=== PATIENT | female | born 1985 ===

== ENCOUNTER 2016-10-27 21:33 | Emergency (ER) | payer MEDICAID, OTHER ==
[2016-10-27 21:51] VITALS: BP 151/87
--- NOTE | 2016-10-27 22:11 | UC ---
General HPI - HPI Summary HPI Summary: Patient gave to a healthy on 10/23. the was uneventful. She did have 2 elevated BP readings while in the hospital. today around noon patient started to have a headache, had some floaters that went away in a few minutes. patient became nervous and started taking her BP every 40 minutes, BP got to 151/101 and she came in to get checked out. Patient is worried that her BP is going to keep getting higher. toady was the first day she was up and around has been resting on the couch since giving . She ran errands this morning. - History of Current Complaint Chief Complaint: UCHeadInjury Stated Complaint: BLOOD PRESSURE FLUCTUATING Time Seen by Provider: 10/27/16 21:51 Hx Obtained From: Patient Onset/Duration: Sudden Onset, Lasting Hours Timing: Constant Onset Severity: Mild Current Severity: Moderate Associated Signs & Symptoms: Positive: Headache - Allergy/Home Medications Allergies/Adverse Reactions: Allergies Allergy/AdvReac Type Severity Reaction Status Date / Time No Known Allergies Allergy Verified 10/27/16 21:43 Home Medications: Home Medications Docusate Sodium [Colace] 1 tab PO BID 10/27/16 [History Confirmed 10/27/16] Ferrous Sulfate [Iron (Ferrous Sulfate)] 1 tab PO BID 10/27/16 [History Confirmed 10/27/16] Ibuprofen TAB* [Motrin TAB* 600 MG] 1 tab PO Q6HR PRN 10/27/16 [History Confirmed 10/27/16] PMH/Surg Hx/FS Hx/Imm Hx Previously Healthy: Yes - Surgical History Surgical History: None - Family History Known Family History: Positive: Hypertension - Social History Alcohol Use: None Substance Use Type: None Smoking Status (MU): Never Smoked Tobacco Review of Systems Constitutional: Negative Skin: Negative Eyes: Negative ENT: Negative Respiratory: Negative Cardiovascular: Negative Gastrointestinal: Negative Genitourinary: Negative Motor: Negative Neurovascular: Negative Musculoskeletal: Negative Neurological: Headache Psychological: Anxious All Other Systems Reviewed And Are Negative: Yes Physical Exam Triage Information Reviewed: Yes Appearance: Well-Appearing, Well-Nourished, Pain Distress Vital Signs: Initial Vital Signs Temp 98.3 F 10/27/16 21:45 Pulse 84 10/27/16 21:45 Resp 16 10/27/16 21:45 BP 151/87 10/27/16 21:45 Pulse Ox 99 10/27/16 21:45 Vital Signs Reviewed: Yes Eye Exam: Normal Eyes: Positive: Conjunctiva Clear ENT Exam: Normal ENT: Positive: Normal ENT inspection, Hearing grossly normal, Pharynx normal, TMs normal Neck exam: Normal Neck: Positive: Supple, Nontender, No Lymphadenopathy Respiratory Exam: Normal Respiratory: Positive: Chest non-tender, Lungs clear, Normal breath sounds Cardiovascular Exam: Normal Cardiovascular: Positive: RRR, No Murmur, Pulses Normal Abdominal Exam: Normal Abdomen Description: Positive: Nontender, No Organomegaly, Soft Bowel Sounds: Positive: Present Musculoskeletal Exam: Normal Musculoskeletal: Positive: Strength Intact, ROM Intact, No Edema, Other: Neurological Exam: Normal Neurological: Positive: Alert, Muscle Tone Normal Psychological Exam: Normal Skin Exam: Normal Course/Dx - Course Course Of Treatment: hx obtained, meds reviewed, exam performed, manual BP taken 128/84. Discussed anxiety reduction and taking it easy and working back into daily activity. - Differential Dx - Multi-Symptom Provider Diagnoses: anxiety. headache. elevated BP Discharge - Discharge Plan Condition: Stable Disposition: HOME Patient Education Materials: Preeclampsia and Eclampsia After Delivery (GEN) Additional Instructions: GO home and take it easy, increase your fluid intake and elevated your feet. I would follow up with your cut lace machine operator tomorrow, Do not take you BP more than 1x a day unless symptoms arise, in case of headaches, sit down, elevate feet and relax. report any unusual symptoms to your cut lace machine operator.
== END 2016-10-27 22:25 | disposition home or self-care (01) ==
LOC: UCCORT 21:33
DX: F41.9 Anxiety disorder, unspecified (principal); R51 Headache; R03.0 Elevated blood-pressure reading, without diagnosis of hypertension
CPT/HCPCS: 99212; G0463

== ENCOUNTER 2019-08-26 17:45 | Emergency (ER) | payer OTHER ==
--- OUTSIDE RECORDS SUMMARY | 2019-08-26 17:54 | XMS REPORT | Continuity of Care Document ---
:1985 External Reference #:[id number] Author Name Gm Dunbar M.D. (transmitted by agent of provider Amira Bradley) Address [address] [place] [address] Care Team Providers Name Role Phone [facility] DDRichard - Dentist Care Team Information Relationship Specialist Problems Description No Information Available Social History Type Date Description Comments Sex Unknown Tobacco Use Start: Unknown Never Smoked Cigarettes ETOH Use Denies alcohol use Recreational Drug Use Never Used Drugs Allergies, Adverse Reactions, Alerts Description No Known Drug Allergies Medications Description No Active Medications Immunizations Description No Information Available Vital Signs Date Vital Result Comment 07/08/2019 4:30pm Weight 150.00 lb Height 63 inches 5'3" BMI (Body Mass Index) 26.6 kg/m2 BP Systolic 91 mmHg BP Diastolic 61 mmHg Heart Rate 81 /min O2 % BldC Oximetry 100 % Body Temperature 97.7 F Pain Level 0 06/27/2019 8:01am Weight 150.00 lb Height 63 inches 5'3" BMI (Body Mass Index) 26.6 kg/m2 BP Systolic 108 mmHg BP Diastolic 70 mmHg Heart Rate 78 /min O2 % BldC Oximetry 99 % Body Temperature 97.6 F Pain Level 0 Results Description No Information Available Procedures Description No Information Available Medical Devices Description No Information Available Encounters Type Date Location Provider Dx Diagnosis Office Visit 06/27/2019 Main Office Gm Dunbar M.D. M27.8 Other specified 8:00a diseases of jaws Assessments Date Code Description Provider 06/27/2019 M27.8 Other specified diseases of jaws Gm Dunbar M.D. Plan of Treatment No Information Available Functional Status Description No Information Available Mental Status Description No Information Available Referrals Refer to Dr Reason for Referral Status Appt Date Gm Dunbar M.D. AUT FOR CT SINUS Created [address] [place], [place] [id number] [phone]
--- NOTE | 2019-08-26 18:16 | UC ---
Throat Pain/Nasal Alvaro HPI - HPI Summary HPI Summary: 34 yo female presents with tongue complaint. She tells me that intermittently over the last few months she will notice a white coating on her tongue with pain and changes in tastes of food. Over the last week has been more constant. She states that she has MS and her neurologist told her that she is prone to yeast infections and she wonders if this is a yeast infection today. She did have cold symptoms about a week ago that have resolved. She has not been on any anbx in >3months. Denies fever, chills, weight loss, cough, sore throat, rash. Also states that her daughter had thrush last week and they were sharing drinks intermittently. - History of Current Complaint Stated Complaint: TONGUE COMPLAINT Time Seen by Provider: 08/26/19 18:16 Hx Obtained From: Patient Onset/Duration: Gradual Onset Severity: Moderate Pain Intensity: 4 Pain Scale Used: 0-10 Numeric - Allergies/Home Medications Allergies/Adverse Reactions: Allergies Allergy/AdvReac Type Severity Reaction Status Date / Time No Known Allergies Allergy Verified 08/26/19 18:11 PMH/Surg Hx/FS Hx/Imm Hx - Additional Past Medical History Additional PMH: MS - Surgical History Surgical History: None - Family History Known Family History: Positive: Hypertension - Social History Occupation: Employed Full-time Lives: With Family Alcohol Use: None Substance Use Type: None Smoking Status (MU): Never Smoked Tobacco Review of Systems All Other Systems Reviewed And Are Negative: No Constitutional: Positive: Negative Skin: Positive: Negative Eyes: Positive: Negative ENT: Positive: Other - tongue discomfort Respiratory: Positive: Negative Cardiovascular: Positive: Negative Neurological: Positive: Negative Psychological: Positive: Negative Physical Exam - Summary Physical Exam Summary: GENERAL: NAD. WDWN. No pain distress. SKIN: No rashes, sores, lesions, or open wounds. HEENT: Head: AT/NC Eyes: EOM intact. Conjunctiva clear without inflammation or discharge. Ears: Hearing grossly normal. TMs intact, no bulging, erythema, or edema. Nose: Nasal mucosa pink and moist. NTTP maxillary and frontal sinus. Throat: Posterior oropharynx without exudates, erythema, or tonsillar enlargement. Uvula midline. TONGUE WITH MILD THIN WHITE COATING AND ERYTHEMATOUS APPEARANCE. NO FISSURE OR BLEEDING. ORAL MUCOSA WNL NECK: Supple. Nontender. No lymphadenopathy. CHEST: CTAB. No r/r/w. No accessory muscle use. Breathing comfortably and in no distress. CV: RRR. Pulses intact. Cap refill <2seconds NEURO: Alert. PSYCH: Age appropriate behavior. Triage Information Reviewed: Yes Vital Signs: Vital Signs: Temp Pulse Resp BP Pulse Ox 99.1 F 76 15 129/65 100 08/26/19 18:12 08/26/19 18:12 08/26/19 18:12 08/26/19 18:12 08/26/19 18:12 Vital Signs Reviewed: Yes Throat Pain/Nasal Course/Dx - Course Course Of Treatment: Suspect thrush - Differential Dx/Diagnosis Provider Diagnosis: Thrush Discharge ED - Sign-Out/Discharge Documenting (check all that apply): Patient Departure All imaging exams completed and their final reports reviewed: No Studies - Discharge Plan Condition: Stable Disposition: HOME Prescriptions: Nystatin SUSPENSION* 5 ml SWISH SPIT QID 7 Days #140 ml Patient Education Materials: Oral Candidiasis (ED) Referrals: Carolina Hall MD [Primary Care Provider] - Additional Instructions: If you develop a fever, shortness of breath, chest pain, new or worsening symptoms - please call your PCP or go to the ED immediately. - Billing Disposition and Condition Condition: STABLE Disposition: Home
[2019-08-26 18:17] VITALS: BP 129/65
== END 2019-08-26 18:42 | disposition home or self-care (01) ==
LOC: UCCORT 17:45
DX: B37.9 Candidiasis, unspecified (principal)
CPT/HCPCS: 99212; G0463